=== PATIENT | male | born 1985 | race Caucasian/White ===

== ENCOUNTER → 2018-06-20 15:29 | Outpatient (CLI) | payer OTHER, SELFPAY ==
[2018-06-20 17:17] LABS: Liquefaction Semen YES (YES); PH Semen 8.5 (7-8); Sperm Count 71 x10^6/mL (20-150); Volume Semen 4.5 (1.0-5.0)
[2018-06-20 17:18] LABS: Sperm Morphology 28 %ABNORM (0-30); Sperm Motility 75% % Motile
== END ==
PROVIDERS: Visit Provider Obstetrics & Gynecology Reproductive Endocrinology
DX: Z31.41 Encounter for fertility testing (principal)
CPT/HCPCS: 89320